=== PATIENT | female | born 1995 ===

== ENCOUNTER 2021-08-24 16:19 | Outpatient (CLI) | payer OTHER | END 2021-08-24 17:20 | disposition home or self-care (01) | LOC: PRENATAL 16:19 | PROVIDERS: ATTEND Obstetrics & Gynecology Maternal & Fetal Medicine | DX: O35.0XX1 Maternal care for (suspected) central nervous system malformation in fetus, fetus 1 (principal); O35.3XX1 Maternal care for (suspected) damage to fetus from viral disease in mother, fetus 1; O98.512 Other viral diseases complicating pregnancy, second trimester; O43.92 Unspecified placental disorder, second trimester; Z36.89 Encounter for other specified antenatal screening; Z3A.25 25 weeks gestation of pregnancy ==

== ENCOUNTER 2021-11-20 15:30 | Inpatient (IN) | payer OTHER ==
[~2021-11-20] VITALS: Ht 162.6 cm; Wt 2.7 kg
[2021-12-04] MEDS ORDERED: IBU800 MG PO (08:58)
[2021-12-04] MEDS ORDERED: SURFAK240 M1 PO (08:58)
== END 2021-12-04 13:30 | disposition home or self-care (01) | DRG 788 ==
LOC: LDR 11-30 07:46 → O/R 12-01 10:11 → OB/GYN 12-01 10:27
PROVIDERS: ADMIT Obstetrics & Gynecology; ATTEND Obstetrics & Gynecology
PROC: 3E0P7VZ Introduction of Hormone into Female Reproductive, Via Natural or Artificial Opening (ICD-10-PCS; 2021-12-01)
PROC: 4A1HXFZ Monitoring of Products of Conception, Cardiac Rhythm, External Approach (ICD-10-PCS; 2021-12-01)
PROC: 10D00Z1 Extraction of Products of Conception, Low, Open Approach (ICD-10-PCS; principal; 2021-12-01 11:15)
DX: O76 Abnormality in fetal heart rate and rhythm complicating labor and delivery (principal); O62.2 Other uterine inertia; Z37.0 Single live birth; Z3A.39 39 weeks gestation of pregnancy